=== PATIENT | female | born 1945 | race Caucasian/White ===

== ENCOUNTER 2016-05-24 14:57 | Emergency (ER) | payer MEDICARE ==
[2016-05-24 15:14] VITALS: BP 184/94
[2016-05-24] MEDS ORDERED: Ibuprofen TAB* 600 MG PO ONE (15:30)
--- NOTE | 2016-05-24 15:43 | UC ---
Head Injury HPI - HPI Summary HPI Summary: This is a 70 yo female with a h/o neuropathy and migraine HAs who presents after sustaining a head injury while shopping. Patient was at a furniture store and attempted to pull a night stand off of a table and the drawer from the night stand fell out at struck her in the right side of her head. She did not fall or lose consciousness. She has some mild light sensitivity and pain around the area of impact. She drove herself here without difficulty. No n/v, no visual changes, no difficulty with balance. - History Of Current Complaint Chief Complaint: UCHeadInjury Stated Complaint: HEAD INJURY - Allergies/Home Medications Allergies/Adverse Reactions: Allergies Allergy/AdvReac Type Severity Reaction Status Date / Time Penicillins Allergy Unknown See Comment Verified 05/24/16 15:04 Sulfa Antibiotics Allergy Unknown See Comment Verified 05/24/16 15:04 Home Medications: Home Medications Cholecalciferol [Vitamin D] 05/24/16 [History] Gabapentin CAP(*) [Neurontin 300 CAP(*)] 300 mg PO BEDTIME 05/24/16 [History Confirmed 05/24/16] SUMAtriptan TAB* [Imitrex TAB*] 25 mg PO SEE INSTRUCTIONS 05/24/16 [History Confirmed 05/24/16] Vitamin B Complex TAB* [Complex B-100*] 05/24/16 [History] PMH/Surg Hx/FS Hx/Imm Hx Neurological History Of: Reports: Migraine - Surgical History Surgical History: Yes Surgery Procedure, Year, and Place: Uterine fibroid removal. Tethered spinal cord correction - Family History Known Family History: Positive: None - Social History Alcohol Use: Occasionally Alcohol Amount: a few drinks per month Substance Use Type: None Smoking Status (MU): Never Smoked Tobacco Have You Smoked in the Last Year: No Review of Systems Constitutional: Negative Skin: Negative Eyes: Negative ENT: Negative Respiratory: Negative Cardiovascular: Negative Gastrointestinal: Negative Genitourinary: Negative Motor: Negative Neurovascular: Negative Musculoskeletal: Negative Neurological: Headache Psychological: Negative All Other Systems Reviewed And Are Negative: Yes Physical Exam Triage Information Reviewed: Yes Appearance: Well-Nourished Vital Signs: Initial Vital Signs Temp 98.4 F 05/24/16 15:06 Pulse 97 05/24/16 15:06 Resp 16 05/24/16 15:06 BP 184/94 05/24/16 15:06 Pulse Ox 100 05/24/16 15:06 Vital Signs Reviewed: Yes ENT Exam: Normal Neck: Positive: Supple, Nontender, Other: - FROM Respiratory: Positive: Lungs clear, Normal breath sounds. Negative: Crackles, Rhonchi, Wheezing Cardiovascular: Positive: RRR, No Murmur Abdomen Description: Positive: Nontender, Soft Neurological Exam: Normal Neurological: Positive: Muscle Tone Normal, Other: - CNII-XII intact, neg Rhomberg, DTRs intact, gait intact Skin Exam: Normal Head Injury Course/Dx - Course Course Of Treatment: This is a 70 yo female with a chronic neuropathy and h/o migraine HAs who presents after getting struck in the head, no associated LOC. She has a mild GORE. Neuro exam intact. Force of impact was fairly minimal. No additional imaging indicated. Recommend symptomatic care. - Differential Dx/Diagnosis Differential Diagnosis/HQI/PQRI: Concussion Without LOC, Contusion, Hematoma, Skull Fracture Provider Diagnoses: 1. Head trauma without loss of consciousness Discharge - Discharge Plan Condition: Stable Disposition: HOME Patient Education Materials: Head Injury (ED) Additional Instructions: Activity: As tolerated Instructions: 1. Apply ice to the head for 15-20 min at a time several times over the next 24 hours 2. Apply heat to the neck/shoulder 3. Use ibuprofen/naproxen as needed for pain relief 4. Please proceed to the ER if you develop a severe headache, changes to your vision, confusion, etc.
== END 2016-05-24 16:00 | disposition home or self-care (01) ==
LOC: UCEAST 14:57
DX: S09.90XA Unspecified injury of head, initial encounter (principal); W20.8XXA Other cause of strike by thrown, projected or falling object, initial encounter; Y93.89 Activity, other specified; Y92.512 Supermarket, store or market as the place of occurrence of the external cause; Z88.1 Allergy status to other antibiotic agents; Z88.2 Allergy status to sulfonamides
CPT/HCPCS: 99202; A9270-GY; G0463